=== PATIENT | female | born 1930 | race Caucasian/White ===

== ENCOUNTER → 2016-08-22 | Outpatient (CLI) | payer OTHER, BC ==
[~2016-08-22] MED LIST: ADVIL100 M2 PO; ASPIRIN325 PO; ASPIRIN81 M2 PO; AUGMENTIN 875-1 EACH PO; BACLOFEN 10 MG10 MG PO; CIPRO250 M1; COLACE100 MG PO; FLAGYL 250 MG250 MG PO; FLONASE 0.05%50 MCG NASAL; GABAPENTIN; HYDROCODON-ACE1 EA10 PO; HYDROCODONE-AP1 EAC6 PO; KEFLEX250 MG; KEFLEX250 MG PO; MOBIC15 MG PO; MOBIC7.5 M1 PO; MULTIVITAMINS1 EAC7 PO; NEURONTIN 300300 M1 PO; NEURONTIN 400400 M1 PO; NEXIUM40 MG PO; TRAMADOL 50 MG50 MG PO; VITAMIN D1000 UNI1 PO; XARELTO20 MG PO
== END ==
LOC: RAD 01:46
DX: Z12.31 Encounter for screening mammogram for malignant neoplasm of breast (principal)

== ENCOUNTER → 2016-12-25 | Outpatient (CLI) | payer OTHER, BC ==
[~2016-12-25] MED LIST changes: +ACETAMINOPHEN325 M1 PO; +VITAMIN B-12500 MCG PO
== END ==
LOC: CAT 10:43
DX: M47.896 Other spondylosis, lumbar region (principal); M48.061 Spinal stenosis, lumbar region without neurogenic claudication

== ENCOUNTER 2017-01-17 10:43 | Inpatient (IN) | payer OTHER, BC ==
[~2017-01-17] VITALS: Ht 165.1 cm; Wt 117.9 kg
--- NOTE | ~2017-01-17 | EKG ---
[place] [address] [address] [facility] [place] [address] ELECTROCARDIOGRAM REPORT Name: JUSTICE WANG Room #: 405-P ADM IN M.R.#: [id number] Admission: 01/17/17 Attend Phys: Migdalia Mays Discharge: Date of : 32 Report #: [id number] THIS REPORT FOR: //name// [facility] ED Test Date: 2017-01-17 Test Time: 12:50:24 Pat Name: JUSTICE WANG Department: Room: 405 Gender: F School Director: rené : 1930 Requested By: Kristie Metz Order Number: [id number] MD: Miguel Gayle Measurements Intervals Rosamond Rate: 60 P: 0 NC: 38 QRS: 264 QRSD: 136 T: 83 QT: 435 QTc: 435 Interpretive Statements Atrial fibrillation Ventricular-paced rhythm No further analysis attempted due to paced rhythm Compared to ECG 11/20/2015 08:46:39 No significant changes Electronically Signed On 01-17-2017 16:06:37 MEDIA PRODUCER by Miguel Gayle [email or web address] <ELECTRONICALLY SIGNED> By: Miguel Gayle MD 01/17/17 1606 1250 1250 Miguel Gayle MD /LEONARDO
[2017-01-17 10:47] VITALS: BP 160/107
[2017-01-17] MEDS ORDERED: CENTRUM SILVER1 EAC4 PO (11:00)
[2017-01-17] MEDS ORDERED: NEURONTIN300 MG PO (11:00)
[2017-01-17 12:26] LABS: HEMATOCRIT 51.2 % (37.0-47.0); HEMOGLOBIN 17.3 gm/dL (12.0-15.0); MANUAL DIFF YES; MCH 32.2 pg (26.0-34.0); MCHC 33.7 g/dL (28.0-37.0); MCV 95.6 fL (80.0-100.0); PLATELET COUNT 180 thou/uL (150-400); RBC 5.36 mil/uL (4.20-5.00); WBC 15.4 thou/uL (4.0-11.0)
[2017-01-17 12:32] LABS: CALCIUM 9.8 mg/dL (8.5-10.1); CREATININE 0.7 mg/dL (0.6-1.0); POTASSIUM 4.6 mmol/L (3.5-5.1)
[2017-01-17 12:52] LABS: ABSOLUTE NEUTROPHILS 12.3 thou/uL (1.4-8.2); TOTAL CELL COUNT 100
[2017-01-17 13:55] LABS: URINE BILIRUBIN NEGATIVE (Negative); URINE BLOOD NEGATIVE (Negative); URINE COLOR YELLOW; URINE GLUCOSE-RANDOM* NEGATIVE (Negative); URINE KETONES TRACE (Negative); URINE NITRITE NEGATIVE (Negative); URINE PROTEIN (DIPSTICK) NEGATIVE (Negative); URINE SPECIFIC GRAVITY 1.025 (1.005-1.035); URINE UROBILINOGEN 0.2 E.U./dl (0.2-1.0)
[2017-01-17 16:07] VITALS: BP 122/59
[2017-01-17 19:40] VITALS: BP 121/54
[2017-01-18 05:25] VITALS: BP 128/71
[2017-01-18 08:11] VITALS: BP 134/76
[2017-01-18] MEDS ORDERED: HYDROCODON-ACE1 EAC7 PO (09:49)
[2017-01-18] MEDS ORDERED: CYCLOBENZAPRINE5 MG PO (09:49)
[2017-01-18 10:47] VITALS: BP 134/76
== END 2017-01-18 11:41 | disposition home or self-care (01) | DRG 552 ==
LOC: ER 10:43 → 4N 12:10 → EROBS 12:10 → 4N 14:00 → EROBS 14:00 → 4N 14:21
PROVIDERS: Emergency Medicine
DX: S32.029A Unspecified fracture of second lumbar vertebra, initial encounter for closed fracture (principal); Z68.41 Body mass index [BMI] 40.0-44.9, adult; D72.829 Elevated white blood cell count, unspecified; I48.91 Unspecified atrial fibrillation; E66.9 Obesity, unspecified; M43.16 Spondylolisthesis, lumbar region; W18.39XA Other fall on same level, initial encounter; Y93.89 Activity, other specified; Y92.89 Other specified places as the place of occurrence of the external cause; Z88.2 Allergy status to sulfonamides; Y99.8 Other external cause status
CPT/HCPCS: 10790

== ENCOUNTER → 2017-01-27 | Outpatient (CLI) | payer OTHER, BC ==
[~2017-01-27] VITALS: Ht 165.1 cm; Wt 117.9 kg
[~2017-01-27] MED LIST changes: +CENTRUM SILVER1 EAC4 PO; +CYCLOBENZAPRINE5 MG PO; +HYDROCODON-ACE1 EAC7 PO; +NEURONTIN300 MG PO
--- NOTE | ~2017-01-27 | HPC ---
[facility] [address] [address] PAIN MANAGEMENT CONSULTATION Name: JUSTICE WANG [facility] [id number] Admission: 01/27/17 Attend Phys: Payam Lamas DO Discharge: Date of : 32 Report #: [id number] THIS REPORT FOR: //name// CC: Payam Morales DO DATE OF SERVICE: 01/27/2017 REFERRING PHYSICIAN: Ninfa Morales DO. CHIEF COMPLAINT: Low back pain, right lower extremity pain and paresthesias. HISTORY OF PRESENT ILLNESS: As you know, the patient is a very pleasant 86-year-old female who returns today in followup visit to undergo next in the series of epidural injections under fluoroscopic guidance. The patient is placing her pain score anywhere from 2-3/10, states her pain is shooting, burning, aching and weakness in sensation, exacerbated with lying on her side, lifting her leg, sitting, and driving in her car, gabapentin, Tylenol, chiropractic manipulation and epidural injections have improved pain. She reports a 90% improvement in overall pain with previous epidural injection, returning today in followup visit to undergo the next in the series in hopes of building on success of previous intervention. The patient has had no new injury, no new traumas or changes in her medical history since our last visit. ALLERGIES: SULFA. CURRENT MEDICATIONS: Cholecalciferol, gabapentin, acetaminophen, cyanocobalamin, and Xarelto (held for 5 days). SOCIAL HISTORY: The patient denies tobacco, alcohol, IV or illicit drug use. IMAGING: No new imaging available. PHYSICAL EXAMINATION: VITAL SIGNS: Blood pressure 110/51, pulse is 63, respiratory rate 20 and unlabored, the patient is 100% on room air, height 5 feet 7 inches tall, weight 260 pounds, BMI calculated 43.3. GENERAL: Well-developed, well-nourished, well-hydrated, class 3 morbidly obese 86-year-old female, appearing her stated age, placing current pain score at 2-3/10. HEENT: Normocephalic, atraumatic. Pupils are equal, round, reactive to light. Extraocular muscles are intact. Sclerae nonicteric without injection. EXTREMITIES: Show no clubbing, no cyanosis, and no edema. MUSCULOSKELETAL: Seated straight leg raising negative. Supine straight leg raising positive. Marisabel's test negative. Modified Gaenslen's positive for [facility] [address] [place] [address] PAIN MANAGEMENT CONSULTATION Name: JUSTICE WANG [id number] Admission: 01/27/17 Attend Phys: Payam Lamas DO Discharge: Date of : 32 Report #: [id number] axial low back pain. Gait is antalgic favoring right lower extremity over left. ASSESSMENT: 1. Symptomatic lumbar radiculopathy. 2. Lumbosacral spondylosis with radiculopathy. 3. Spinal stenosis of the lumbar spine. 4. Facet arthropathy of the lumbar spine. 5. Chronic intractable pain. PLAN: 1. The patient returns today in followup visit indicating a 90% improvement in overall pain with the epidural injection provided at last visit. She returns today in followup visit to build on success of previous intervention. The patient was advised the risks and benefits of that procedure. These risks include, but not necessarily limited to bleeding, bruising, infection, worsening of pain, no relief of pain, also risk of temporary or permanent muscle weakness, temporary or permanent nerve damage, possible paralysis and . The patient states understood and wished to proceed. 2. No medication changes were made at today's visit. The patient will continue current medical therapy as previously prescribed. 3. We will see the patient back in followup visit on an as needed basis for the third and final in the series of epidural injections. PROCEDURE NOTE DESCRIPTION OF PROCEDURE: L5-S1 paramedian epidural steroid injection under fluoroscopic guidance. This is the second procedure of the first series that the patient is undergoing. After obtaining written consent, the patient was taken back to the fluoroscopy suite, placed in a prone position with pillow under the abdomen to decrease lumbar lordosis. The skin overlying the lumbosacral area was then prepped and draped in aseptic fashion. The L5-S1 vertebral interspace was then identified by AP fluoroscopy. The skin and subcutaneous tissue overlying the target site of injection was anesthetized with 3 mL 1% lidocaine. A 20-gauge 4-1/2-inch Tuohy needle was then advanced under fluoroscopic guidance towards the epidural space using a paramedian approach. The epidural space was identified using loss of resistance to air technique. After negative aspiration for heme or cerebrospinal fluid, a total of 1 mL of Omnipaque was injected. A lumbar epidurogram was confirmed using both AP and lateral fluoroscopy. After negative aspiration for heme or cerebrospinal fluid, 5 mL of a solution containing 2 mL 40 mg per mL, 80 mg total triamcinolone, 3 mL lidocaine 1% was injected in increments. Contrast spread was noted posterior epidural space. The needle was then retracted approximately half way and needle tract flushed [address] [address] PAIN MANAGEMENT CONSULTATION Name: JUSTICE WANG Room #: REG CLI Radha#: [id number] Admission: 01/27/17 Attend Phys: Payam Lamas DO Discharge: Date of : 32 Report #: [id number] with 1 mL of 1% lidocaine. Needle was then removed. There were no apparent sensory or motor deficits in the lower extremity following the procedure. A sterile bandage was placed over the injection site. The heart rate, pulse, oximetry and blood pressure were continuously monitored after the procedure. There were no apparent complications. The patient tolerated the procedure well and was carefully escorted to the recovery room in stable condition. There were no apparent complications. After meeting discharge criteria, the patient was then discharged home. By: 1130 1451 Payam Lamas DO /nt
[2017-01-27 10:48] VITALS: BP 110/51
== END | disposition home or self-care (01) ==
LOC: PAIN 01-20 09:49
DX: M47.27 Other spondylosis with radiculopathy, lumbosacral region (principal); M48.061 Spinal stenosis, lumbar region without neurogenic claudication; M12.88 Other specific arthropathies, not elsewhere classified, other specified site; G89.29 Other chronic pain; Z88.2 Allergy status to sulfonamides; Z98.890 Other specified postprocedural states; Z79.891 Long term (current) use of opiate analgesic; Z79.899 Other long term (current) drug therapy

== ENCOUNTER → 2017-03-09 | Outpatient (CLI) | payer OTHER, BC ==
[~2017-03-09] VITALS: Ht 165.1 cm; Wt 115.7 kg
[~2017-03-09] MED LIST changes: +CLARITIN10 MG PO
--- NOTE | ~2017-03-09 | S ---
[facility] [place] [address] [place] [address] SURGICAL PATH RPT PROCEDURE Name: JUSTICE WANG Room #: REG [facility].#: [id number] Admission: 03/09/17 Date of : 32 Discharge: Report #: [id number] Path Case #: [id number] PATHOLOGY REPORT COLLECTION DATE: 03/09/2017 RECEIVED DATE: 03/09/2017 SUBMITTING PHYS: Dr. Fredo Lugo OTHER PHYS: Dr. Ninfa Morales SPECIMEN(S) RECEIVED: A.Polyp biopsy x4 B.Polyp cecum * * * * * * * * * * * * FINAL DIAGNOSIS: A. Polyp x4, hepatic flexure, endoscopic biopsy: - Multiple fragments showing tubular adenoma without high-grade dysplasia. - One fragment showing hyperplastic polyp without dysplasia. B. Polyp, cecum, endoscopic biopsy: - Tubular adenoma. - Negative for high-grade dysplasia. (IUV:marzena; 03/10/2017) PATHOLOGIST: Kadi Gonzalez M.D. REPORT ELECTRONICALLY SIGNED BY: Kadi Gonzalez M.D. DATE/TIME: 03/10/2017 16:31 * * * * * * * * * * * * GROSS PATHOLOGY: A. Received in formalin labeled "Justice Wang, polyp BX hepatic flexure x4," are multiple (more than 5) segments of cox soft tissue measuring 1.3 x 0.7 x 0.2 cm in aggregate dimensions. The specimen is submitted entirely in cassette A1. B. Received in formalin labeled "Justice Wang, polyp-cecum," is a segment of cox soft tissue measuring 0.9 x 0.5 x 0.2 cm in maximum dimension. The specimen is submitted entirely in cassette B1. (SDY; 03/09/2017) CLINICAL HISTORY: History colon polyps, change in bowel habits Colon polyps, diverticulosis, hemorrhoids INITIAL CPT CODE(S): A; [address] [facility] [place] [address] SURGICAL PATH RPT PROCEDURE Name: JUSTICE WANG Room #: REG [facility].#: [id number] Admission: 03/09/17 Date of : 32 Discharge: Report #: [id number] Path Case #: [id number]; [id number] Professional services performed by [facility] at [address] , [place] [address] Technical services performed by [facility] at [address] [place] [address], [facility] [address], [place] [address]. [facility] [address] [place] [address] PHONE: [phone] DIRECTOR: Blu Wills M.D. * * * END OF REPORT * * *
--- NOTE | ~2017-03-09 | P ---
[facility] [place] [address] [place] [address] PROCEDURE REPORT Name: JUSTICE WANG Room #: REG [facility].#: [id number] Admission: 03/09/17 Attend Phys: Fredo Lugo MD Discharge: Date of : 32 Report #: [id number] THIS REPORT FOR: //name// CC: Fredo Morales DO BRIEF HISTORY: The patient is an 86-year-old woman with a history of colon adenoma removed in May 2007, who was recently seen for change in bowel habits with worsening constipation to the point she had to manually disimpact her rectum. PREOPERATIVE DIAGNOSES: Change in bowel habits and history of colon polyps. POSTOPERATIVE DIAGNOSES: 1. Multiple colon polyps. 2. Moderate sigmoid diverticulosis coli. 3. Internal hemorrhoids. MEDICATIONS: Deep sedation with propofol per anesthesia. SPECIMENS: 1. Diminutive hepatic flexure polyps times 4. 2. Sessile polyp, cecum. ESTIMATED BLOOD LOSS: 3 mL. PROCEDURE: Colonoscopy to cecum and terminal ileum with snare polypectomy and biopsy. FINDINGS: Prior to propofol sedation, the procedure of colonoscopy discussed with the patient as well as potential risks, benefits, and complications. She indicates she understands and desires to proceed. With the patient in left lateral decubitus position, digital examination was completed, which revealed no abnormalities. Subsequently, the [employer] video colonoscope was introduced in the rectum, advanced under direct vision to the cecum. Done with minimal difficulty. The cecum was identified by the ileocecal valve and the appendiceal orifice. I was able to visualize the distal segment of terminal ileum, which was inspected and noted to be unremarkable. At that point, scope was withdrawn and careful circumferential views were obtained. Upon slow withdrawal of the scope, the prep was noted to be good. The mucosa was within normal limits, normal vascular pattern, and normal light reflex. As we withdrew the scope, a sessile 5-mm polyp was seen in the cecum, removed by cold snare polypectomy. Scope was further withdrawn and at the hepatic flexure, a total of 4 diminutive polyps were seen and removed by biopsy. No additional polypoid lesions were seen on this examination. As we reached the [facility] [address] [place] [address] PROCEDURE REPORT Name: JUSTICE WANG Room #: REG [facility].#: [id number] Admission: 03/09/17 Attend Phys: Fredo Lugo MD Discharge: Date of : 32 Report #: [id number] colon, there was noted to be moderately severe diverticular disease without endoscopic evidence of diverticulitis. The scope was withdrawn in the rectum. Upon retroflexion, no abnormalities were seen other than hemorrhoids noted upon retroflexion of the scope. Scope was withdrawn. The patient tolerated the procedure well. CONDITION OF THE PATIENT UPON DISCHARGE: Following procedure, the patient drowsy, arousable and conversant. She will be discharged to home when fully ambulatory. INSTRUCTIONS TO THE PATIENT AND FAMILY AT THE TIME OF DISCHARGE: A total of 5 polyps were identified today. They all had the appearance of small adenomas. Typically at this point, I would suggest followup colon exam in 3 years. However, benefit of surveillance colonoscopy at age 89 may be limited. However, if her overall health status is good and longevity appears to be at least 7 years or so, a surveillance exam in 3 years may be reasonable. We will follow up on the path and make further recommendations. As far as her altered bowel habits and constipation, suggest MiraLax on a daily basis. She should return to the office for followup if her symptoms do not improve. <ELECTRONICALLY SIGNED> By: Fredo Lugo MD 03/09/17 1631 0953 1436 Fredo Lugo MD /nt
== END | disposition home or self-care (01) ==
LOC: GI 08:17
DX: D12.0 Benign neoplasm of cecum (principal); D12.3 Benign neoplasm of transverse colon; K57.30 Diverticulosis of large intestine without perforation or abscess without bleeding; K64.8 Other hemorrhoids; Z86.010 Personal history of colon polyps; G47.33 Obstructive sleep apnea (adult) (pediatric); Z95.0 Presence of cardiac pacemaker; Z90.49 Acquired absence of other specified parts of digestive tract; Z79.899 Other long term (current) drug therapy; Z88.2 Allergy status to sulfonamides
CPT/HCPCS: 62110; 62900

== ENCOUNTER 2017-07-09 11:35 | Emergency (ER) | payer OTHER, BC ==
[~2017-07-09] VITALS: Ht 167.6 cm; Wt 115.7 kg
--- NOTE | ~2017-07-09 | O ---
[facility] [address] [place] [address] OPERATIVE REPORT Name: JUSTICE WANG Room #: REG M..#: [id number] Admission: 07/09/17 Attend Phys: Discharge: Date of : 32 Report #: [id number] THIS REPORT FOR: //name// CC: Rigo CHONG unknown DATE OF SERVICE: 07/09/2017 PREOPERATIVE DIAGNOSIS: Left anterior inferior shoulder dislocation. POSTOPERATIVE DIAGNOSIS: Left anterior inferior shoulder dislocation. PROCEDURE PERFORMED: Closed reduction of glenohumeral joint dislocation. SURGEON: Kandace Antoine MD ANESTHESIA: Sedation provided by Dr. Anahi Tolbert from anesthesia. COMPLICATIONS: None. CONDITION: Stable. DISPOSITION: The procedure was performed in the Emergency Department. INDICATIONS: The patient is an 86-year-old female with the above mentioned diagnosis. She elects for closed reduction. DESCRIPTION OF PROCEDURE: The risks, benefits, alternatives, complications were discussed including, but not limited to inability to reduce the dislocation, fracture and injury to neurovascular structures. Informed consent was obtained. The correct extremity was identified by myself. A final timeout was taken to verify correct patient, operative procedure and operative site, all concurred. After adequate sedation was achieved, a gentle closed reduction maneuver was performed. There was an audible clunk and the shoulder motion was assessed. It was stable in all planes of motion. AP and axillary lateral view were reviewed and interpreted by myself and showed a concentrically reduced glenohumeral joint. She was placed into a shoulder immobilizer. She was neurovascularly intact post reduction. She had 2+ radial and ulnar pulses, abduction and adduction, flexion, extension was intact. She tolerated the procedure well. By: 1910 21 Kandace Antoine MD /nt
--- NOTE | ~2017-07-09 | HC ---
[facility] [address] [place] [address] CONSULTATION Name: JUSTICE WANG Room #: DEP [facility]#: [id number] Admission: 07/09/17 Attend Phys: Discharge: 07/09/17 Date of : 32 Report #: [id number] THIS REPORT FOR: //name// CC: Rigo CHONG unknown DATE OF SERVICE: 07/09/2017 REASON FOR CONSULTATION: Left shoulder dislocation. HISTORY OF PRESENT ILLNESS: The patient is an 86-year-old female who fell today while hanging a shelf. She reported slipping and falling. She denied loss of consciousness. Reported left shoulder pain and deformity. She denies numbness or tingling in her left upper extremity. REVIEW OF SYSTEMS: NEUROLOGIC: Denies numbness or tingling in her left upper extremity. MUSCULOSKELETAL: See HPI. PAST MEDICAL HISTORY: Significant for atrial fibrillation and sleep apnea. PAST SURGICAL HISTORY: Cholecystectomy and a pacemaker placement. MEDICATIONS: Xarelto, gabapentin, cyanocobalamin, cholecalciferol and acetaminophen. ALLERGIES: SULFA. SOCIAL HISTORY: She lives by herself. She is right hand dominant. She occasionally uses a cane. Denies smoking or drinking alcohol. PHYSICAL EXAMINATION: GENERAL: The patient is alert and oriented. She is in a mild amount of distress. VITAL SIGNS: Most recent vital signs show heart rate is 60, respiratory rate 18, blood pressure 135/56, and pulse oximetry is 96% on room air. EXTREMITIES: Examination of her left upper extremity shows an adducted and externally rotated shoulder. Sensation is intact to light touch throughout including Sergeant's patch. It does appear that she fires her deltoid. She has full finger and wrist extension. Full finger flexion, abduction and adduction is intact. There are some small abrasions to her left upper extremity. There is no tenderness at the elbow, forearm, wrist or hand. There is significant tenderness at the shoulder. RADIOGRAPHS: AP, scapular Y and axillary lateral view show predominantly inferior with an anterior component shoulder dislocation without evidence of [address] [address] CONSULTATION Name: JUSTICE WANG Room #: [facility].#: [id number] Admission: 07/09/17 Attend Phys: Discharge: 07/09/17 Date of : 32 Report #: [id number] fracture and these were reviewed and interpreted by myself as well as the report. LABORATORY DATA: White blood cell count 12, hemoglobin 15.5, hematocrit 45, platelet count 166. Chemistry is grossly normal. These were done on 07/09/2017. IMPRESSION AND PLAN: Left anterior inferior glenohumeral joint dislocation. I discussed the diagnosis as well as treatment options with the patient and I recommend closed reduction under anesthesia. We discussed the risks, benefits, alternatives, complications including, but not limited to inability to resolve the dislocation, requiring surgery, damage to blood vessels or nerves and fracture. Informed consent was obtained. Questions were encouraged and answered to the best of my ability. Please see a separate procedure report. By: 1723 2120 Kandace Antoine MD /nt
[~2017-07-09 11:35] MED LIST changes: -CLARITIN10 MG PO
[2017-07-09 14:32] LABS: ABSOLUTE NEUTROPHILS 10.4 thou/uL (1.4-8.2); BASOPHILS 0.4 % (0.0-2.0); EOSINOPHILS 0.3 % (0.0-3.0); HEMATOCRIT 45.8 % (37.0-47.0); HEMOGLOBIN 15.5 gm/dL (12.0-15.0); MCH 32.1 pg (26.0-34.0); MCHC 33.8 g/dL (28.0-37.0); MCV 95.1 fL (80.0-100.0); MONOCYTES 3.4 % (1.0-8.0); PLATELET COUNT 166 thou/uL (150-400); POLYS 86.9 % (36.0-66.0); RBC 4.81 mil/uL (4.20-5.00); RDW 13.3 % (10.5-14.5)
[2017-07-09 14:40] LABS: CALCIUM 9.8 mg/dL (8.5-10.1); CREATININE 0.8 mg/dL (0.6-1.0); POTASSIUM 4.1 mmol/L (3.5-5.1)
[2017-07-09] MEDS ORDERED: COLACE100 MG PO (15:28)
[2017-07-09] MEDS ORDERED: CLARITIN10 MG PO (15:28)
[2017-07-09 21:17] VITALS: BP 127/66
== END 2017-07-09 21:17 | disposition home or self-care (01) ==
LOC: ER 11:35
PROVIDERS: Emergency Medicine
DX: S43.005A Unspecified dislocation of left shoulder joint, initial encounter (principal); S41.112A Laceration without foreign body of left upper arm, initial encounter; I48.91 Unspecified atrial fibrillation; Z95.0 Presence of cardiac pacemaker; Z90.49 Acquired absence of other specified parts of digestive tract; G47.30 Sleep apnea, unspecified; Z88.2 Allergy status to sulfonamides; W19.XXXA Unspecified fall, initial encounter; Y93.89 Activity, other specified; Y92.89 Other specified places as the place of occurrence of the external cause; Y99.8 Other external cause status
CPT/HCPCS: 62110; 62900

== ENCOUNTER → 2017-08-17 | Outpatient (CLI) | payer OTHER, BC ==
[~2017-08-17] MED LIST changes: +CLARITIN10 MG PO
== END | disposition home or self-care (01) ==
LOC: RAD 09:53
DX: M19.012 Primary osteoarthritis, left shoulder (principal); M25.512 Pain in left shoulder; Z98.890 Other specified postprocedural states; Z88.2 Allergy status to sulfonamides; Z79.899 Other long term (current) drug therapy

== ENCOUNTER → 2017-08-26 | Outpatient (CLI) | payer OTHER, BC | LOC: RAD 08-07 13:25 | DX: Z12.31 Encounter for screening mammogram for malignant neoplasm of breast (principal) ==

== ENCOUNTER → 2018-05-13 | Outpatient (CLI) | payer OTHER, BC ==
--- NOTE | 2018-05-13 15:54 | 2DMMODE ---
[facility] [address] [place] [address] 2 D/M-MODE ECHOCARDIOGRAM Name: JUSTICE WANG Room #: REG [facility] [id number] ������������� Admission: 05/13/18 ������������� Attend Phys: Miguel Gayle Discharge: ��� ������������� ��� Date of : 34 Date of Service: 05/13/18 1554 �� Report #: [id number] �������� ��������������������������������������������[id number] THIS REPORT FOR: //name// APPROVED REPORT Study performed: 05/13/2018 14:32:35 EXAM: Comprehensive 2D, Doppler, and color-flow Echocardiogram Patient Location: Out-Patient Room #: Echo lab 2 Status: routine BSA: 2.22 HR: 61 bpm BP: 126/78 mmHg Other Information Study Quality: Fair Indications Atrial Fibrillation Pacemaker 2D Dimensions IVSd: 11.25 (7-11mm) LVOT Diam: 21.03 (18-24mm) LVDd: 52.20 mm PWd: 11.25 (7-11mm) Ascending Ao: 33.72 (22-36mm) LVDs: 35.61 (25-40mm) Aortic Root: 31.81 mm IVC: 24.00 mm Volumes Left Atrial Volume (Systole) Single Plane 4CH: 114.24 mL Single Plane 2CH: 56.52 mL LA ESV Index: 40.00 mL/m2 Aortic Valve AoV Peak Omid.: 1.56 m/s AO Peak Gr.: 9.77 mmHg LVOT Max P.05 mmHg LVOT Max V: 1.01 m/s MADDY Vmax: 2.23 cm2 Pulmonary Valve PV Peak Omid.: 0.86 m/s PV Peak Gr.: 2.98 mmHg Tricuspid Valve TR Peak Omid.: 2.35 m/s [facility] [address] [place] [address] 2 D/M-MODE ECHOCARDIOGRAM Name: JUSTICE WANG Room #: REG [facility].#: [id number] ������������� Admission: 05/13/18 ������������� Attend Phys: Miguel Gayle Discharge: ��� ������������� ��� Date of : 34 Date of Service: 05/13/18 1554 �� Report #: [id number] �������� ��������������������������������������������[id number] TR Peak Gr.: 22.13 mmHg PA Pressure: 32.00 mmHg Left Ventricle The left ventricle is normal size. There is normal left ventricular wall thickness. The left ventricular systolic function is normal. The left ventricular ejection fraction is within the normal range. LVEF is 55-60%. This study is not technically sufficient to allow evaluation of the LV diastolic function. Right Ventricle The right ventricle is normal size. The right ventricular systolic function is normal. Pacemaker lead is present in the right ventricle. Atria Left atrium is dilated. Right atrium is dilated. Pacemaker lead is present in the right atrium. Aortic Valve The aortic valve is normal in structure. No aortic regurgitation is present. There is no aortic valvular stenosis. Mitral Valve The mitral valve is normal in structure. Mild mitral regurgitation. No evidence of mitral valve stenosis. Tricuspid Valve The tricuspid valve is normal in structure. There is moderate tricuspid regurgitation. Estimated PAP 32 mmHg. There is mild pulmonary hypertension. Pulmonic Valve The pulmonary valve is normal in structure. Trace pulmonic regurgitation. Great Vessels The aortic root is normal in size. IVC is dilated and collapses >50% with inspiration. Pericardium There is no pericardial effusion. <Conclusion> The left ventricle is normal size. There is normal left ventricular wall thickness. The left ventricular systolic function is normal. [facility] [address] [place] [address] 2 D/M-MODE ECHOCARDIOGRAM Name: JUSTICE WANG Room #: REG CL [facility]#: [id number] ������������� Admission: 05/13/18 ������������� Attend Phys: Miguel Gayle Discharge: ��� ������������� ��� Date of : 34 Date of Service: 05/13/18 1554 �� Report #: [id number] �������� ��������������������������������������������[id number] The right ventricle is normal size. Pacemaker lead is present in the right ventricle. Left atrium is dilated. Right atrium is dilated. Pacemaker lead is present in the right atrium. There is no aortic valvular stenosis. Mild mitral regurgitation. There is moderate tricuspid regurgitation. Estimated PAP 32 mmHg. ��������������������������������������������� <ELECTRONICALLY SIGNED> ���������������������������������������� By: Reno Fox MD ��������������������������������������������� 05/13/18 1554 1554 1554 Reno Fox MD /INF
== END ==
LOC: CV 14:20
DX: I08.1 Rheumatic disorders of both mitral and tricuspid valves (principal); I45.9 Conduction disorder, unspecified; I48.91 Unspecified atrial fibrillation; Z95.0 Presence of cardiac pacemaker

== ENCOUNTER → 2018-09-01 | Outpatient (CLI) | payer OTHER, BC | LOC: RAD 01:17 | DX: Z12.31 Encounter for screening mammogram for malignant neoplasm of breast (principal) ==

== ENCOUNTER 2018-11-08 11:39 | Emergency (ER) | payer OTHER, BC ==
[~2018-11-08] VITALS: Ht 167.6 cm; Wt 110.2 kg
[2018-11-08 14:49] VITALS: BP 112/61
== END 2018-11-08 14:49 | disposition home or self-care (01) ==
LOC: ER 11:39
DX: S50.01XA Contusion of right elbow, initial encounter (principal); S30.0XXA Contusion of lower back and pelvis, initial encounter; S00.03XA Contusion of scalp, initial encounter; S80.812A Abrasion, left lower leg, initial encounter; G47.30 Sleep apnea, unspecified; I48.91 Unspecified atrial fibrillation; Z88.2 Allergy status to sulfonamides; Z90.49 Acquired absence of other specified parts of digestive tract; Z95.0 Presence of cardiac pacemaker; W18.39XA Other fall on same level, initial encounter; Y92.89 Other specified places as the place of occurrence of the external cause; Y93.89 Activity, other specified; Y99.8 Other external cause status

== ENCOUNTER → 2019-04-05 | Outpatient (CLI) | payer OTHER, BC | LOC: CAT 09:26 | DX: J34.89 Other specified disorders of nose and nasal sinuses (principal); J32.9 Chronic sinusitis, unspecified ==

== ENCOUNTER 2019-07-17 02:34 | Inpatient (IN) | payer OTHER, BC ==
[~2019-07-17] VITALS: Ht 167.6 cm; Wt 108.9 kg
[2019-07-17 02:38] VITALS: BP 131/50
[2019-07-17 04:57] LABS: HEMATOCRIT 45.3 % (37.0-47.0); HEMOGLOBIN 15.6 gm/dL (12.0-15.0); MCH 32.8 pg (26.0-34.0); MCHC 34.4 g/dL (28.0-37.0); MCV 95.3 fL (80.0-100.0); RBC 4.76 mil/uL (4.20-5.00); RDW 13.2 % (10.5-14.5); WBC 10.7 thou/uL (4.0-11.0)
[2019-07-17 05:12] LABS: CALCIUM 9.8 mg/dL (8.5-10.1); CREATININE 0.9 mg/dL (0.6-1.0); POTASSIUM 4.5 mmol/L (3.5-5.1)
[2019-07-17 05:27] LABS: APTT 44.3 Seconds (24.5-32.8); INR 1.2; PROTIME 11.9 Seconds (9.3-11.4)
[2019-07-17 05:45] VITALS: BP 131/50
[2019-07-17 06:01] VITALS: BP 131/50
--- NOTE | 2019-07-17 14:59 | NUR ---
PT CARE ASSUMED AT 0700. A&OX4. PT ON BEDREST PER MD ORDERS DUE TO T12 FRACTURE. PT IS TO STAY ON BEDREST UNTIL BACKBRACE IS ON AFTER HEELROOM COMES TO HER AND MEASURES HER. PAIN IS BEING MEASURED WITH PAIN MEDICATION. PT CAN HAVE THE HOB ELEVATED TO 20%. EXTERNAL JARQUIN IN PLACE. CONSULTS CALLED. PT WEARS HEARING AIDS AND DENTURES. PACEMAKER. XRAYS COMPLEETED AWAITING RESULTS. WEARS CPAP AT HOME. FALL PROTOCOL IN PLACE. ADMISSION COMPLEETED. CALL LIGHT IN REACH.
[2019-07-17 15:00] VITALS: BP 106/56
[2019-07-17 19:11] VITALS: BP 120/46
--- NOTE | 2019-07-18 03:29 | NUR ---
ASSUMED PT CARE AT 1900. PT RESTING IN BED. RT BROUGHT CPAP AND HOOKED HER UP. NO C/O PAIN OVERNIGHT - SAYS IT IS ONLY WHEN SHE MOVES. ABRASIONS ON ELBOWS GIVEN A FRESH BANDAID. FEMALE EXTERNAL CATHETER IN PLACE. NO COMPLAINTS AT THIS TIME. WILL CONTINUE TO MONITOR.
[2019-07-18 04:53] VITALS: BP 118/66
[2019-07-18 07:45] VITALS: BP 109/62
--- NOTE | 2019-07-18 16:56 | NUR ---
ASSUMED CARE OF THE PT AT 0700. PT IS ON STRUCT BEDREST AND CANNOT ELEVATE HOB >20 DEGREES. BACK BRACE DELIVERED. L FOREARM DRY AND INTACT. EXTERNAL CATHETER IN PLACE, PT IS INCONTINENT. PT USES CPAP AT NITE WITH PULSE OX. PT HAS PACEMAKER. FALL PRECAUTIONS IN PLACE, BED IN THE LOWEST POSITION AND BED/CHAIR ALARM ON, CALL LIGHT IS WITHIN REACH. WILL CONTINUE TO MONITOR THE PT.
[2019-07-18 17:24] VITALS: BP 124/59
[2019-07-18 19:11] VITALS: BP 129/52
--- NOTE | 2019-07-19 02:08 | NUR ---
ASSESSED AT START OF SHIFT 1899, PT RESTING IN BED HOB 20 DEGREES ON A STRICT BED REST. ORTHO BACK BRACE AT BEDSIDE PHYSICAL THERAPY TO EVALUATE TOMORROW. C/O PAIN 09/18 MANAGED WITH IV MORPHINE. EXT FEMALE CATH IN PLACE AND PT WEARS CPAP AT NIGHT. PT GRAND DTR RICHARD CALLED WORRIED THAT NO ONE HAS UPDATED HER ON CARE AND STATED THAT HASN'T SEE HER. UPDATED HER ON CARE AND INFORMED ABOUT PROGRESS AND CARE GIVEN DURING THE DAY. FALL PREC IN PLACE AND CALL LIGHT IN REACH PT SLEPT THE REST OF THE NIGHT WILL CONT WITH POC TILL EOS.
[2019-07-19 03:30] VITALS: BP 155/59
[2019-07-19 08:25] VITALS: BP 146/74
[2019-07-19] MEDS ORDERED: LEVO-T25 MCG PO (09:53)
--- NOTE | 2019-07-19 15:41 | NUR ---
ASSESSMENT: CM REVIEWED CHART AND ATTEMPTED TO CALL PT AT BEDSIDE BUT NO ANSWER. CM REACHED OUT TO PATIENTS DAUGHTER/DPOA DEBORAH WHO STATED THAT PATIENT LIVES AT HOME ALONE. SHE REPORTS THAT HER NIECE RICHARD IS FLYING IN FROM [facility] TOMORROW TO HELP ASSIST PATIENT AT DISCHARGE IF NEEDED. SHE REPORTS THAT PATIENTS HAS TWO STEPS TO enter the home NO STEPS TO GET TO HER BEDROOM. PT NORMALLY AMBULATES INDEPENDENTLY BUT DOES HAVE A CANE SHE USES WHEN OUTSIDE OF THE HOME. PT HAS A GRAB BAR IN THE SHOWER. PT HAS NOT BEEN TO SNF. CM DISCUSSED ROLE. PT HAS HER BRACE AND WORKING WITH PT/OT. CONSULT WAS PLACED FOR [facility] AND CM IS AWAITING INPUT FROM [facility] T[facility]. SHE STATES SHE WILL UPDATE CM INFORMATION IS AVAILABLE. DAUGHTER STATED HER SISTER IS NERVOUS ABOUT PT CONSIDERING A SNF DUE TO THE COVID 19 VIRUS. CM DISCUSSED HH OPTIONS WELL IF THEY ARE REFUSING SNF. CM WILL AWAIT INPUT FROM [facility] AND CONTINUE TO FOLLOW TO ASSIST NEEDED.
--- NOTE | 2019-07-19 16:43 | NUR ---
PT CARE ASSUMED AT 0700. A&Ox4. PT UP IN THE RECLINER NOW THAT SHE HAS HER BRACE. WHEN SHE IS NOT WEARING IT SHE NEEDS TO LAY FLAT IN BED WITH NO MORE THEN A 20 DEGREE HOB ELEVATION. EXTERNAL JARQUIN IN PLACE. CPAP AT NIGHT. PT WILL EITHER GO TO REHAB OR HOME WITH HOME HEALTH. IV IS PATENT WITH NO REDNESS OR EDEMA, SALINE LOCKED. PT IS STRUGGLING TO HAVE A BM AND IS REQUESTING A LAXATIVE. PT NOW HAS PO PAIN MEDICATION AND HAS STATED THAT SHE IS DOING MUCH BETTER HAVING A BRACE ON. FAMILY HAS BEEN UPDATED. CALL LIGHT IN REACH. FALL PROTOCOL IN PLACE. WILL CONTINUE TO MONITOR.
[2019-07-19 17:39] VITALS: BP 126/64
[2019-07-19 20:15] VITALS: BP 140/62
--- NOTE | 2019-07-20 00:54 | NUR ---
ASSUMED PT CARE AT 1900. PT C/O PAIN 08/18 TONIGHT. PAIN MEDICATION GIVEN WITH LITTLE RELIEF. UP TO TOILET WITH ASSISTANCE AND WALKER. BM TONIGHT. C/O BACK BRACE BEING OUT OF PLACE. READJUSTED MULTIPLE TIMES UNTIL PT FINALLY GOT COMFORTABLE. CURRENTLY RESTING IN BED WITH CPAP ON.
[2019-07-20 04:20] VITALS: BP 121/47
[2019-07-20 08:28] VITALS: BP 114/63
--- NOTE | 2019-07-20 10:44 | NUR ---
on-going assessment: CM RECEIVED A CALL FROM PHYSICAL THERAPY STATING PT DID VERY WELL TODAY AND HE IS NOW RECOMMENDING HOME WITH HH. CM SPOKE WITH PT WHO STATES SHE DOES NOT HAVE A PREFERENCE OF HH COMPANY. CM FAXED REFERRAL TO [facility] AND WAITING ON A CALL BACK. CM ALSO LEFT FOR HER DAUGHTER DEBORAH. PATIENTS HAS A NIECE WHO IS FLYING INTO TOWN TODAY AND WILL BE ABLE TO STAY WITH HER AT DISCHARGE.
[2019-07-20 11:06] VITALS: BP 114/63
[2019-07-20 11:07] VITALS: BP 114/63
[2019-07-20 11:11] VITALS: BP 114/63
[2019-07-20 11:36] VITALS: BP 114/63
--- NOTE | 2019-07-20 11:49 | NUR ---
PT CARE ASSUMED AT 0700. A&0x4. PT UP IN THE RECLINER WITH BACKBRACE ON. EXTERNAL JARQUIN IN PLACE. CPAP OVER NIGHT. BM TODAY. PT WILL DISCHARGE HOME WITH HOMEHEALTH TODAY. DISCHARGE INSTRUCTIONS GIVEN AND PT UNDERSTANDS. UP WITH WALKER. IV PATENT WITH NO REDNESS OR EDEMA. IV REMOVED. FALL PROTOCOL IN PLACE.
--- NOTE | 2019-07-20 14:36 | NUR ---
FAXED DC ORDERS/SUMMARY TO [facility] HH SPOKE WITH MERI THEY RECEIVED ORDERS AND WILL NOTIFY PT TIME OF VISITS ALSO NEEDED TO KNOW PCP NOTIFIED MERI THAT IT IS DR. LIA KAN [phone].
== END 2019-07-20 12:26 | disposition home health service (06) | DRG 552 ==
LOC: ER 02:34 → 4S 05:39 → EROBS 05:39 → 4S 06:04
PROVIDERS: Emergency Medicine; ADMIT Surgery; ATTEND Surgery
PROC: 5A09357 Assistance with Respiratory Ventilation, Less than 24 Consecutive Hours, Continuous Positive Airway Pressure (ICD-10-PCS; principal; 2019-07-17)
PROC: 5A09357 Assistance with Respiratory Ventilation, Less than 24 Consecutive Hours, Continuous Positive Airway Pressure (ICD-10-PCS; 2019-07-18)
DX: S22.089A Unspecified fracture of T11-T12 vertebra, initial encounter for closed fracture (principal); I48.91 Unspecified atrial fibrillation; G62.9 Polyneuropathy, unspecified; M47.815 Spondylosis without myelopathy or radiculopathy, thoracolumbar region; M48.061 Spinal stenosis, lumbar region without neurogenic claudication; G47.33 Obstructive sleep apnea (adult) (pediatric); K59.00 Constipation, unspecified; E03.9 Hypothyroidism, unspecified; Z79.899 Other long term (current) drug therapy; Z79.01 Long term (current) use of anticoagulants; Z90.49 Acquired absence of other specified parts of digestive tract; Z95.0 Presence of cardiac pacemaker; Z88.2 Allergy status to sulfonamides; W18.39XA Other fall on same level, initial encounter; Y93.89 Activity, other specified; Y92.098 Other place in other non-institutional residence as the place of occurrence of the external cause; Y99.8 Other external cause status
CPT/HCPCS: 10195

== ENCOUNTER → 2019-08-04 | Outpatient (CLI) | payer OTHER, BC ==
[~2019-08-04] MED LIST changes: +LEVO-T25 MCG PO
== END ==
LOC: RAD 13:43
PROVIDERS: ATTEND Neurological Surgery
DX: S22.080A Wedge compression fracture of T11-T12 vertebra, initial encounter for closed fracture (principal); S32.029A Unspecified fracture of second lumbar vertebra, initial encounter for closed fracture; X58.XXXA Exposure to other specified factors, initial encounter; Y93.89 Activity, other specified; Y92.89 Other specified places as the place of occurrence of the external cause; Y99.8 Other external cause status

== ENCOUNTER → 2019-08-09 | Outpatient (CLI) | payer OTHER, BC | LOC: SJCVC 11:43 | PROVIDERS: ATTEND Internal Medicine Cardiovascular Disease | DX: R94.31 Abnormal electrocardiogram [ECG] [EKG] (principal); I65.9 Occlusion and stenosis of unspecified precerebral artery; I48.21 Permanent atrial fibrillation; Z95.0 Presence of cardiac pacemaker ==

== ENCOUNTER → 2019-08-10 | Outpatient (CLI) | payer OTHER, BC | LOC: SJCVCIMAG 13:20 | PROVIDERS: ATTEND Internal Medicine Cardiovascular Disease | DX: M79.604 Pain in right leg (principal); M79.605 Pain in left leg; R22.43 Localized swelling, mass and lump, lower limb, bilateral ==

== ENCOUNTER → 2019-10-13 | Outpatient (CLI) | payer OTHER, BC | LOC: BC 09:03 | PROVIDERS: ATTEND Family Medicine | DX: Z12.31 Encounter for screening mammogram for malignant neoplasm of breast (principal) ==

== ENCOUNTER → 2019-12-21 | Outpatient (CLI) | payer OTHER, BC ==
[~2019-12-21] VITALS: Ht 167.6 cm; Wt 104.3 kg
[~2019-12-21] MED LIST changes: +FOLIXAPURE5000 UNIT PO; +HYDROCHLOROTHIA25 M2 PO; +PSEUDOEPHEDRINE30 MG PO; +TYLENOL EXTRA500 MG PO; +VITAMIN B-121000 MC2 SUBLING; +VYZULTA5 ML OPHTHALMIC
--- NOTE | ~2019-12-21 | HPC ---
[facility] [place] [address] PAIN MANAGEMENT CONSULTATION Name: JUSTICE WANG Room #: REG [facility].#: [id number] Admission: 12/21/19 Attend Phys: Payam Lamas DO Discharge: Date of : 32 Report #: [id number] THIS REPORT FOR: cc: Ninfa Morales MD,Payam Martinez MD, DO ~ CC: Payam Morales DATE OF SERVICE: 12/21/2019 REFERRING PHYSICIAN: Heron Allen MD CHIEF COMPLAINT: Low back pain. HISTORY OF PRESENT ILLNESS: As you know, the patient is an 89-year-old female with longstanding history of low back pain, who was treated with epidural injections in 2017 successfully undergoing 2 injections with resolution of symptoms. The patient states she was doing very well until 07/2019 when she sustained a fall, leading to compression fracture at T12 and L2. The patient was seen and evaluated in the hospital, advised of treatment options and chose to undergo TLSO bracing. The patient states she wore the brace no greater than 3 weeks as it was "irritating." She continues to experience axial back pain that has progressed. She has been referred to our clinic to discuss treatment options for axial back symptoms. She states that the symptoms she is experiencing began directly after a fall and has worsened. The fall was sustained 07/14/2019. The patient was referred to our clinic to discuss interventional treatments. The patient reports today pain is constant and steady. She describes the pain as aching and sharp. She places her daily pain score 9/10, daily average at 9/10, worst pain has been is 10/10. The patient states that pain is exacerbated with doing any activities, improves with pain medications. She has been referred to our clinic to discuss interventional treatment options. PAST MEDICAL HISTORY: 1. Vertebral compression fracture of the lumbar spine. 2. Hypertension. 3. Thyroid disease. PAST SURGICAL HISTORY: 1. Cholecystectomy. 2. Sinus surgery. SOCIAL HISTORY: The patient denies tobacco, alcohol, IV or illicit drug use. 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 She is not working, not receiving workmen's compensation nor is trying to obtain disability benefits. She is unaccompanied at today's visit. REVIEW OF SYSTEMS: Positive for weight gain, decrease in appetite, frequent headaches, wearing corrective eyewear, hearing loss with tinnitus, heart trouble, shortness of breath, obstructive sleep apnea requiring CPAP, changes in bowel movements, constipation, frequent urination, nocturia, incontinence and dribbling to urine, rashes and itching, skin color changes, hair and nail changes, bleeding and bruising tendencies, low back pain. All other review of systems negative per 12-point review of systems other than those listed in history of present illness. Pain impact score 26/70, moderate interference of daily activities secondary to pain. ALLERGIES: No reported drug allergies. CURRENT MEDICATIONS: Acetaminophen 500 mg t.i.d., cyanocobalamin 1000 mcg per day, vitamin D3 one tab per day, pseudoephedrine 30 mg p.r.n., hydrochlorothiazide 25 mg per day, Vyzulta one drop each eye per day. IMAGING: CT of the thoracic spine obtained 07/17/2019 shows acute transverse horizontally oriented fracture involving the mid anterior aspect, the superior plate of T12. Chronic appearing L2 compression fracture. Multilevel thoracic lumbar spondylosis with multiple central canal stenosis, L1 through L4, L5. PQRS: The patient has known arthritic changes of the lumbar spine, bilateral hips and knees. No rheumatoid arthritis. She is placing pain score at 9/10. She is a fall risk, has had a fall in last 3 months, but does not utilize any type of ambulatory device despite recommendations to do so. She is on blood thinners in the form of Xarelto. She is treated for hypertension. She is not on chronic opioids, has a low opiate addiction potential. Pain impact 26/70, moderate interference of daily activities secondary to pain. PHYSICAL EXAMINATION: VITAL SIGNS: Blood pressure 113/56, pulse 62, respiratory rate 20 and unlabored. The patient is 100% on room air. Height 5 feet 6 inches tall, weight 230 pounds, BMI calculated 37.1. GENERAL: Well-developed, well-nourished, well-hydrated exogenously obese 89-year-old female appearing stated age, pain is rated today 9/10. HEENT: Normocephalic, atraumatic. Pupils equal, round and reactive. NEUROLOGIC: Speech fluent. The patient deemed a good historian. LUNGS: Clear. No wheeze, rhonchi, and no rales. CARDIOVASCULAR: Regular. No appreciable gallop, no rub. ABDOMEN: Soft, obese, normoactive bowel sounds. [address] [address] PAIN MANAGEMENT CONSULTATION Name: JUSTICE WANG Room #: REG ANIKA Hoskins#: [id number] Admission: 12/21/19 Attend Phys: Payam Lamas DO Discharge: Date of : 32 Report #: [id number] EXTREMITIES: Show no clubbing, no cyanosis, and no appreciable edema. MUSCULOSKELETAL: Lower extremity strength appears symmetrical, but deconditioning noted bilaterally. Seated straight leg raising negative. Supine straight leg raising negative. Marisabel's test is negative. Modified Gaenslen's positive for axial low back pain. Ankle clonus negative. Babinski is negative. Palpatory tenderness is noted over the paraspinal musculature of lower lumbar spine. No spinous process tenderness. The patient's gait appears normal for her. She does show slight loss of lordotic curvature in stance. ASSESSMENT: 1. Symptomatic lumbar radiculopathy. 2. Spinal stenosis of the lumbar spine. 3. Lumbosacral spondylosis with radiculopathy. 4. Lumbar degeneration. 5. History of vertebral compression fractures with suboptimal therapeutic treatment. 6. Chronic intractable pain. PLAN: 1. The patient has been referred to our service by her primary care physician for evaluation and treatment for chronic axial back pain. The patient has had a fall in 07/2019, leading to compression fracture of T12 and a chronic compression fracture of L2. The patient opted not to undergo vertebral augmentation of the T12 while in the hospital and chose to utilize the TLSO bracing system, which was recommended to be worn for 8 weeks. The patient states she did not make it as long as even 3 weeks before she discarded the device. There has been no new imaging since that time. The patient is noted to have done very well with the epidural injections in the past to address lumbar radiculopathy secondary to central canal stenosis. It would be difficult to rule out any vertebral compression fracture or exacerbation of her known compression fractures without further imaging and we would recommend this before moving forward with interventional treatments. We did discuss today the interventional treatments we would recommend and the following was discussed with the patient. We discussed physical therapy, stretching exercise, core strengthening and a concerted effort at weight loss to address axial back pain issues. We discussed suggestions in medication management to include neuropathic pain medications and the possibility of a low dose opioid as the patient cannot take nonsteroidal anti-inflammatories in conjunction with Xarelto therapy. The suggestions would be provided to the PCP. We discussed lumbar epidural injection under fluoroscopic guidance for which the patient was referred to our clinic. We also discussed surgical options with the patient, though at this point, I would not recommend surgical options given her age and underlying comorbidities, prior to trying more conservative treatment. The patient is agreeable. After reviewing the risks and benefits of all proposed treatment options, [place] [address] PAIN MANAGEMENT CONSULTATION Name: JUSTICE WANG [id number] Admission: 12/21/19 Attend Phys: Payam Lamas DO Discharge: Date of : 32 Report #: [id number] forward with an epidural injection under fluoroscopic guidance. 2. The patient will undergo x-ray imaging of the lumbar spine. I wish to further evaluate the lumbar region before considering undergoing an epidural injection. I am concerned about the T12 fracture and the subtherapeutic treatment of her compression with the TLSO bracing system. She was not in the brace long enough to provide stabilization of the fracture or long enough for healing. There is a possibility this may have worsened. I also wish to determine whether or not a spontaneous compression fracture has occurred in the area as literature would indicate that spontaneous fractures could occur easily within 6 weeks of the fracture. The fact the patient had a chronic L2 compression fracture that was not related to injury would indicate a spontaneous compression fracture. This in conjunction with a compression fracture from a known injury, places her at 12-fold increase of spontaneous fracture occurring above or below and this needs to be further evaluated. She will be sent for x-ray imaging today to determine if there is any concerning canal impingement by posterior logan of any new fractures. 3. The Patient will need to gain clearance to come off her Xarelto for 3 days prior to an epidural injection. This is based on GUS guidelines. She will have to be off the medication for 3 days to undergo the procedure. We recommend she contact the prescribing physician, gain clearance to come off the medication. If she can gain clearance, we will have the patient return to undergo the epidural injection requested. 4. No medication changes made at today's visit except for the request to come off the Xarelto. She will continue all current medication therapies at present. If she is able to gain the authorization to come off the Xarelto, she will stop that 3 days before our appointment next Thursday. 5. We wish to thank the referring physician for the opportunity to see this patient in consultation and discuss treatment options for axial back pain secondary to spinal stenosis. Again, we wish to thank you for the opportunity to see this patient in consultation. By: [id number] Payam Lamas DO /alison
[2019-12-21 13:14] VITALS: BP 113/56
--- NOTE | 2019-12-21 13:27 | NUR ---
Pain Clinic Assessment: 1. History of Osteoarthritis: SPINE History of Rheumatoid Arthritis: DENIES 2. Height: 5 ft. 6 in. 167.6 cm. Weight: 230.0 lb. oz. 104.328 kg. Patient's BMI: 37.1 3. Vital Signs: BP: 113/56 Pulse: 62 Resp: 20 Temp: 02 Sat: 100 ECG Mon: 4. Pain Intensity: 9 5. Fall Risk: Dizziness: N Needs help standing or walking: Y Fallen in the last 3 months: Y Fall risk comments: 6. Patient on Blood Thinner: XARELTO 7. History of Hypertension: Y 8. Opioid Therapy greater than 6 weeks: N Opiate Contract Signed: 9. Risk Assessment Tool Provided: 10. Functional Assessment Tool: 11. Recreational Drug Use: Never Drug Type: Tobacco Use: Never Smoker Tobacco Type: Amount or Packs/day: How Many Years: Alcohol Use: No Frequency: Quant:
== END ==
LOC: PAIN 06:53
PROVIDERS: ATTEND Anesthesiology Pain Medicine
DX: S32.008D Other fracture of unspecified lumbar vertebra, subsequent encounter for fracture with routine healing (principal); M47.27 Other spondylosis with radiculopathy, lumbosacral region; M48.07 Spinal stenosis, lumbosacral region; G89.4 Chronic pain syndrome; I10 Essential (primary) hypertension; Z90.49 Acquired absence of other specified parts of digestive tract; Z79.899 Other long term (current) drug therapy; X58.XXXD Exposure to other specified factors, subsequent encounter

== ENCOUNTER → 2019-12-27 | Outpatient (CLI) | payer OTHER, BC ==
[~2019-12-27] VITALS: Ht 167.6 cm; Wt 107.3 kg
[2019-12-27 12:53] VITALS: BP 133/66
--- NOTE | 2019-12-27 13:00 | NUR ---
Pain Clinic Assessment: 1. History of Osteoarthritis: SPINE POSSIBLE LEFT SHOULDER History of Rheumatoid Arthritis: DENIES 2. Height: 5 ft. 6 in. 167.6 cm. Weight: 236.6 lb. oz. 107.321 kg. Patient's BMI: 38.2 3. Vital Signs: BP: 133/66 Pulse: 80 Resp: 18 Temp: 02 Sat: 99 ECG Mon: 4. Pain Intensity: 8-9 5. Fall Risk: Dizziness: N Needs help standing or walking: N Fallen in the last 3 months: N Fall risk comments: 6. Patient on Blood Thinner: XARELTO 7. History of Hypertension: Y 8. Opioid Therapy greater than 6 weeks: N Opiate Contract Signed: 9. Risk Assessment Tool Provided: 0-LOW RISK 10. Functional Assessment Tool: 11. Recreational Drug Use: Never Drug Type: Tobacco Use: Never Smoker Tobacco Type: Amount or Packs/day: How Many Years: Alcohol Use: No Frequency: Quant:
--- NOTE | 2019-12-28 12:43 | HPC ---
[facility] [place] [address] PAIN MANAGEMENT CONSULTATION Name: JUSTICE WANG Room #: REG [facility]..#: [id number] Admission: 12/27/19 Attend Phys: Payam Lamas DO Discharge: Date of : 32 Report #: [id number] THIS REPORT FOR: cc: Ninfa Morales MD,Payam Martinez MD, DO ~ DATE OF SERVICE: 12/27/2019 REFERRING PHYSICIAN: Miguel Gayle MD CHIEF COMPLAINT: Low back pain. HISTORY OF PRESENT ILLNESS: As you know, the patient is an 89-year-old female with longstanding history of low back pain treated with epidural injections in 2017 successfully, undergoing 2 injections with resolution of symptoms. She was seen in consultation per the request of the referring physician on 12/21/2019 to be evaluated for possible epidural injection. At that time, the patient showed compression fractures that were chronic, but given her risk of fracture of 12-fold increase due to 2 spontaneous compression fractures. We felt it was necessary to have the patient undergo x-ray imaging to confirm that no new fractures had occurred. The patient was complaining of pain in a different area and in a different intensity. I am pleased to indicate that there is no new compression fractures, though it does show multilevel spondylosis that has increased since our previous evaluation. She is now off her anticoagulant in preparation for a lumbar epidural injection. ALLERGIES: No reported drug allergies. CURRENT MEDICATIONS: Acetaminophen, cyanocobalamin, vitamin D3, pseudoephedrine, hydrochlorothiazide, Vyzulta. SOCIAL HISTORY: The patient denies tobacco, alcohol, IV or illicit drug use. She is retired, retired years ago, unaccompanied today. IMAGING: No new imaging available. PQRS: The patient has known arthritic changes of the lumbar spine, bilateral hips and knees. No rheumatoid arthritis. The patient is placing pain today at 8-9/10, not a fall risk, has not had a fall in last 3 months. She is on Xarelto, but discontinued the medication in preparation for today's injection. She is treated for hypertension. She is not on chronic opioids, has a low opiate addiction potential. Pain impact , moderate interference of daily activities secondary to pain. PHYSICAL EXAMINATION: [facility] [address] [place] [address] PAIN MANAGEMENT CONSULTATION Name: JUSTICE WANG Room #: REG [facility].#: [id number] Admission: 12/27/19 Attend Phys: Payam Lamas DO Discharge: Date of : 32 Report #: [id number] VITAL SIGNS: Blood pressure 133/66, pulse 80, respiratory rate 18 and unlabored. The patient is 99% on room air. Height 5 feet 6 inches tall, weight 236.6 pounds, BMI calculated 38.2. GENERAL: Well-developed, well-nourished, well-hydrated exogenously obese 89-year-old female appearing stated age, pain is rated 8-9/10. HEENT: Normocephalic, atraumatic. Pupils equal, round and reactive. EXTREMITIES: Show no clubbing, no cyanosis. No appreciable edema. MUSCULOSKELETAL: Seated straight leg raising is negative. Supine straight leg raising is negative. Marisabel's test is negative. Modified Gaenslen's positive for axial low back pain. ASSESSMENT: 1. Symptomatic lumbar radiculopathy. 2. Spinal stenosis of lumbar spine, progressively worsening. 3. Lumbosacral spondylosis with radiculopathy. 4. Lumbar degeneration. 5. History of compression fractures with suboptimal therapeutic treatment. 6. Chronic intractable pain. PLAN: 1. The patient returns today in followup visit where we have reviewed x-ray imaging from her previous evaluation. I am pleased to advise the patient there were no new compression fractures. It does appear that she has had progression of her osteoarthritic changes and disk desiccation, but no new fractures. 2. The patient has been established today's appointment to undergo a lumbar epidural injection under fluoroscopic guidance. She has been off her Xarelto the recommended amount of time for the patient to undergo this procedure. She has been advised risks and benefits. These risks include but are not necessarily limited to bleeding, bruising, infection, worsening pain, no relief of pain, also risk of temporary or permanent muscle weakness, temporary or permanent nerve damage, possible paralysis and . The patient states understood and wished to proceed. 3. No medication changes made at today's visit. The patient will restart her Xarelto today and continue the medication as directed. 4. We will see the patient back in followup visit on an as needed basis for possible next in the series of lumbar epidural injections. PROCEDURE NOTE DESCRIPTION OF PROCEDURE: L5-S1 intralaminar epidural steroid injection under fluoroscopic guidance. This is the first procedure of the second series that the patient is undergoing. After obtaining written consent, the patient was taken back to the fluoroscopy [address] [address] PAIN MANAGEMENT CONSULTATION Name: JUSTICE WANG [id number] Admission: 12/27/19 Attend Phys: Payam Lamas DO Discharge: Date of : 32 Report #: [id number] suite, placed in a prone position with pillow under the abdomen to decrease lumbar lordosis. The skin overlying the lumbosacral area was then prepped and draped in aseptic fashion. The L5-S1 vertebral interspace was then identified by AP fluoroscopy. The skin and subcutaneous tissue overlying the target site of injection was anesthetized with 3 mL 1% lidocaine. A 20-gauge, 4-1/2 inch Tuohy needle was then advanced under fluoroscopic guidance towards the epidural space using a right parasagittal approach. The epidural space was identified using loss of resistance to air technique. After negative aspiration for heme or cerebrospinal fluid, a total of 1 mL of Omnipaque was injected. A lumbar epidurogram was confirmed using both AP and lateral fluoroscopy. After negative aspiration for heme or cerebrospinal fluid, 5 mL of a solution containing 2 mL of 40 mg per mL, 80 mg total triamcinolone along with 3 mL of lidocaine 1% was injected in increments. Contrast spread was noted from posterior epidural space. The needle was then retracted approximately half way and needle tract flushed with 1 mL of 1% lidocaine. Needle was then removed. There were no apparent sensory or motor deficits in the lower extremity following the procedure. A sterile bandage was placed over the injection site. The heart rate, pulse, oximetry and blood pressure were continuously monitored after the procedure. There were no apparent complications. The patient tolerated the procedure well and was carefully escorted to the recovery room in stable condition. There were no apparent complications. After meeting discharge criteria, the patient was then discharged home. <ELECTRONICALLY SIGNED> By: Payam Lamas DO 12/28/19 [id number] Payam Lamas DO /nt
== END | disposition home or self-care (01) ==
LOC: PAIN 06:55
PROVIDERS: ATTEND Anesthesiology Pain Medicine
DX: M51.16 Intervertebral disc disorders with radiculopathy, lumbar region (principal); M47.27 Other spondylosis with radiculopathy, lumbosacral region; M48.061 Spinal stenosis, lumbar region without neurogenic claudication; G89.29 Other chronic pain; I10 Essential (primary) hypertension; M19.90 Unspecified osteoarthritis, unspecified site; Z98.890 Other specified postprocedural states; Z79.899 Other long term (current) drug therapy

== ENCOUNTER → 2020-08-08 | Outpatient (CLI) | payer OTHER, BC | LOC: SJCVCIMAG 07:37 | PROVIDERS: ATTEND Internal Medicine Cardiovascular Disease | DX: I07.1 Rheumatic tricuspid insufficiency (principal); M79.669 Pain in unspecified lower leg; M79.89 Other specified soft tissue disorders; I45.9 Conduction disorder, unspecified; I48.21 Permanent atrial fibrillation; G47.33 Obstructive sleep apnea (adult) (pediatric); Z95.0 Presence of cardiac pacemaker; Z98.890 Other specified postprocedural states; Z79.01 Long term (current) use of anticoagulants; Z79.899 Other long term (current) drug therapy; Z82.49 Family history of ischemic heart disease and other diseases of the circulatory system ==

== ENCOUNTER → 2020-08-15 | Outpatient (CLI) | payer OTHER, BC | LOC: SJCVC 13:20 | PROVIDERS: ATTEND Internal Medicine Cardiovascular Disease | DX: M79.669 Pain in unspecified lower leg (principal); M79.89 Other specified soft tissue disorders; I48.21 Permanent atrial fibrillation; G47.33 Obstructive sleep apnea (adult) (pediatric); Z95.0 Presence of cardiac pacemaker; Z79.899 Other long term (current) drug therapy ==

== ENCOUNTER → 2020-10-17 | Outpatient (CLI) | payer OTHER, BC | LOC: BC 12:52 | PROVIDERS: ATTEND Family Medicine | DX: Z12.31 Encounter for screening mammogram for malignant neoplasm of breast (principal) ==

== ENCOUNTER → 2020-11-07 | Outpatient (CLI) | payer OTHER, BC | LOC: SJCVC 13:07 | PROVIDERS: ATTEND Internal Medicine Cardiovascular Disease | DX: I48.21 Permanent atrial fibrillation (principal); G47.33 Obstructive sleep apnea (adult) (pediatric); M79.89 Other specified soft tissue disorders; M79.662 Pain in left lower leg; Z95.0 Presence of cardiac pacemaker; Z79.899 Other long term (current) drug therapy ==

== ENCOUNTER 2020-12-04 00:25 | Emergency (ER) | payer OTHER, BC ==
[~2020-12-04] VITALS: Ht 167.6 cm; Wt 104.3 kg
--- NOTE | ~2020-12-04 | EMS ---
[address] [address] EMS Patient Care Report Name: JUSTICE WANG Room #: PRE M.R.#: [id number] Admission: Attend Phys: Discharge: Date of : 34 Report #: [id number] THIS REPORT FOR: //name// Report Transmitted: 12/04/2020 00:27 EMS Care Summary [place], [place]/[facility] Incident [id number] @ 12/03/2020 23:51 Incident Location [address] [place] [address] Patient JUSTICE WANG Female, 89 Years 1930 Patient Address Patient History Cardiac Arrythmia, Patient Allergies No known allergies, Chief Complaint multiple areas of pain/fall Disposition Transported No Lights/[place] Reason Falls Transported To [facility] Narrative pt was getting out of her chair to go to bed, stumbled and fell. she hit her head on the wall when she fell. Life Alert button summoned her neighbor to check on her. we arrive to find pt supine on floor, a&o. she denies LOC. she c/o "hurting everywhere". she later narrows her pain to back, head, L arm and knee. pt stood upright and helped to cot w/ assist. she req eval at [facility]. transport w/o change. Initial Vitals [address] [address] EMS Patient Care Report Name: JUSTICE WANG Room #: PRE M.R.#: [id number] Admission: Attend Phys: Discharge: Date of : 32 Report #: [id number] @00:11P: 112,R: 18,BP: 147/69,Pain: 6/10,GCS: 15,SpO2: 97,Revised Trauma: 12, Assessments @00:01MENTAL:No Abnormalities,SKIN:No Abnormalities,HEENT:Head/Face: Other,LUNG SOUNDS:ABDOMEN:PELVIS//GI:EXTREMITIES:Left Arm: Other,Left Leg: Other,PULSE:NEURO:Other, Impression Extremity Pain Procedures @00:01 ALS Assessment Response: Unchanged @00:06 Stretcher Response: Unchanged Timeline 23:50,Dispatch Notified 23:51,Dispatched 23:53,En Route 23:59,On Scene 00:01,At Patient 00:01,ALS Assessment,Response: Unchanged 00:06,Stretcher,Response: Unchanged 00:11,BP: 147/69 M,PULSE: 112,RR: 18 R,SPO2: 97 Ox,ETCO2: ,BG: ,PAIN: 6,GCS: 15, 00:12,Depart Scene 00:22,At Destination 00:36,Call Closed 23:50,Call Received Disclaimer v1.1 Copyright 2020 [employer] This EMS Care Summary contains data elements from the applicable legal record (which may be displayed differently). It is designed to provide pertinent information for the following purposes: continuity of care, clinical quality, and state data reporting. The complete legal record is available to ED staff and administrators of the receiving hospital in [facility]'s Patient Tracker. All data is provided "as is."
[2020-12-04] MEDS ORDERED: NEURONTIN 300M300 M2 PO (00:37)
[2020-12-04] MEDS ORDERED: MACROBID 100 M100 M1 PO (00:37)
[2020-12-04] MEDS ORDERED: KLOR-CON M1010 MEQ PO (00:38)
[2020-12-04] MEDS ORDERED: NYSTATIN15 G3 TOP (00:38)
[2020-12-04] MEDS ORDERED: FUROSEMIDE 20 M20 M1 PO (00:38)
[2020-12-04 01:23] LABS: ABSOLUTE NEUTROPHILS 4.2 thou/uL (1.4-8.2); EOSINOPHILS 2.7 % (0.0-3.0); HEMATOCRIT 42.1 % (37.0-47.0); HEMOGLOBIN 14.6 gm/dL (12.0-15.0); LYMPHOCYTES 32.5 % (24.0-44.0); MCH 32.4 pg (26.0-34.0); MCHC 34.6 g/dL (28.0-37.0); MCV 93.7 fL (80.0-100.0); MONOCYTES 7.6 % (1.0-8.0); PLATELET COUNT 209 thou/uL (150-400); POLYS 56.2 % (36.0-66.0); RBC 4.49 mil/uL (4.20-5.00); RDW 13.7 % (10.5-14.5); WBC 7.4 thou/uL (4.0-11.0)
[2020-12-04 01:28] LABS: CALCIUM 9.8 mg/dL (8.5-10.1); CREATININE 0.9 mg/dL (0.6-1.0)
[2020-12-04 01:37] LABS: ALBUMIN 3.2 g/dL (3.4-5.0); TOTAL BILIRUBIN 0.5 mg/dL (0.2-1.0); TOTAL PROTEIN 6.9 g/dL (6.4-8.2)
[2020-12-04 06:54] VITALS: BP 147/85
--- NOTE | 2020-12-04 07:16 | EKG ---
[place] [address] [address] [employer] [facility] [address] ELECTROCARDIOGRAM REPORT Name: JUSTICE WANG Room #: DEP [facility]#: [id number] Admission: 12/04/20 Attend Phys: Discharge: 12/04/20 Date of : 32 Report #: [id number] [facility] ED Test Date: 2020-12-04 Test Time: 00:39:14 Pat Name: JUSTICE WANG Department: Room: Gender: F Assistant Health Educator: aung : 1930 Requested By: Jhon Phillips Order Number: [id number] MD: Gabriel Yepez Measurements Intervals Dawson Rate: 60 P: 0 MT: 166 QRS: -88 QRSD: 145 T: 88 QT: 460 QTc: 460 Interpretive Statements Ventricular-paced rhythm No further analysis attempted due to paced rhythm Compared to ECG 01/17/2017 12:50:24 Atrial fibrillation no longer present Electronically Signed On 12-04-2020 7:16:32 CDT by Gabriel Yepez [email or web address] <ELECTRONICALLY SIGNED> By: Gabriel Yepez MD, [facility] 12/04/20 0716 0039 0039 Gabriel Yepez MD, FACC /EPI
--- NOTE | 2020-12-04 11:51 | EKG ---
[address] [place] [address] ELECTROCARDIOGRAM REPORT Name: JUSTICE WANG [id number] Admission: 12/04/20 Attend Phys: Discharge: 12/04/20 Date of : 34 Report #: [id number] [facility] ED Test Date: 2020-12-04 Test Time: 02:42:50 Pat Name: JUSTICE WANG Department: Room: Gender: F Designer Architect: harjinder : 1930 Requested By: Jhon Phillips Order Number: [id number] MD: Gabriel Yepez Measurements Intervals [place] Rate: 60 P: 0 MI: 320 QRS: -86 QRSD: 138 T: 84 QT: 461 QTc: 461 Interpretive Statements Ventricular-paced rhythm No further analysis attempted due to paced rhythm Compared to ECG 12/04/2020 00:39:14 No significant changes Electronically Signed On 12-04-2020 11:51:48 CDT by Gabriel Yepez [email or web address] <ELECTRONICALLY SIGNED> By: Gabriel Yepez MD, [facility] 12/04/20 1151 [id number] Gabriel Yepez MD, FACC /EPI
== END 2020-12-04 06:28 | disposition home or self-care (01) ==
LOC: ER 00:25
PROVIDERS: Emergency Medicine
DX: M25.562 Pain in left knee (principal); M25.512 Pain in left shoulder; M54.50 Low back pain, unspecified; M54.2 Cervicalgia; Z90.49 Acquired absence of other specified parts of digestive tract; Z98.890 Other specified postprocedural states; Z79.891 Long term (current) use of opiate analgesic; Z79.899 Other long term (current) drug therapy; Z79.1 Long term (current) use of non-steroidal anti-inflammatories (NSAID); W18.30XA Fall on same level, unspecified, initial encounter; Y93.89 Activity, other specified; Y92.89 Other specified places as the place of occurrence of the external cause; Y99.8 Other external cause status

== ENCOUNTER → 2021-02-12 | Outpatient (CLI) | payer OTHER, BC ==
[~2021-02-12] VITALS: Ht 167.6 cm; Wt 109.7 kg
[~2021-02-12] MED LIST changes: +FUROSEMIDE 20 M20 M1 PO; +KLOR-CON M1010 MEQ PO; +MACROBID 100 M100 M1 PO; +NEURONTIN 300M300 M2 PO; +NYSTATIN15 G3 TOP
[2021-02-12 11:17] VITALS: BP 114/70
--- NOTE | 2021-02-12 11:36 | NUR ---
Pain Clinic Assessment: 1. History of Osteoarthritis: SPINE POSSIBLE LEFT SHOULDER History of Rheumatoid Arthritis: DENIES 2. Height: 5 ft. 6 in. 167.6 cm. Weight: 241.8 lb. oz. 109.680 kg. Patient's BMI: 39.0 3. Vital Signs: BP: 114/70 Pulse: 62 Resp: 20 Temp: 02 Sat: 99 ECG Mon: 4. Pain Intensity: 6-7 W/ACTIVITY 5. Fall Risk: Dizziness: N Needs help standing or walking: Y Fallen in the last 3 months: Y Fall risk comments: 6. Patient on Blood Thinner: XARELTO 7. History of Hypertension: Y 8. Opioid Therapy greater than 6 weeks: N Opiate Contract Signed: 9. Risk Assessment Tool Provided: 0-LOW RISK 10. Functional Assessment Tool: 11. Recreational Drug Use: Never Drug Type: Tobacco Use: Never Smoker Tobacco Type: Amount or Packs/day: How Many Years: Alcohol Use: No Frequency: Quant:
--- NOTE | 2021-02-13 09:44 | HPC ---
[address] [address] PAIN MANAGEMENT CONSULTATION Name: JUSTICE WANG Room #: REG [facility] M..#: [id number] Admission: 02/12/21 Attend Phys: Payam Lamas DO Discharge: Date of : 32 Report #: [id number] THIS REPORT FOR: cc: Ninfa Morales MD,Payam Martinez MD, DO ~ cc: Ninfa Morales DO DATE OF SERVICE: 02/12/2021 REFERRING PHYSICIAN: Dr. Ninfa Morales. CHIEF COMPLAINT: Low back pain, bilateral lower extremity pain. HISTORY OF PRESENT ILLNESS: As you know, the patient is a very pleasant 89-year-old female with longstanding history of low back pain, treated with epidural injections successfully throughout the years. She was last seen in our clinic on 12/27/2019, undergoing the most recent of the epidural injections. She had been doing very well until just recently. She has had recurrence of symptoms, for which she places pain today at 6-7/10. She returns today requesting to begin the process of undergoing the next in the series of lumbar epidural injections. Unfortunately, the patient continued her Xarelto, which precludes us from being able to provide that injection today. She has received excellent benefit with previous injection up to 90% improvement in overall pain, lasting for almost a year and a half. She returns today in followup visit to discuss the next in the series of lumbar epidural injections. The patient denies injury or trauma that may have led to symptom development. There have been no changes in her medication management that would preclude her from undergoing the epidural injection, assuming she can qualm off the Xarelto in preparation for that procedure. ALLERGIES: No known drug allergies. CURRENT MEDICATIONS: Potassium chloride 10 mEq p.o. daily, acetaminophen 500 mg 3 times a day, Vyzulta 1 drop each eye per day, hydrochlorothiazide 25 mg per day, pseudoephedrine 30 mg p.o. daily, vitamin B complex 1 tab per day, cyanocobalamin 1000 mcg per day, Xarelto 20 mg once a day, levothyroxine 25 mcg per day, multivitamin 1 tab per day, Neurontin 300 mg p.o. at bedtime. SOCIAL HISTORY: The patient denies tobacco, alcohol or IV or illicit drug use. She is retired, retired years ago. She is accompanied by her daughter present in room today. IMAGING: No new imaging available. PQRS: The patient has known arthritic changes of lumbar spine, bilateral shoulders, hips and knees. No rheumatoid arthritis. [place] [address] PAIN MANAGEMENT CONSULTATION Name: JUSTICE WANG Room #: REG Tamiko Hoskins#: [id number] Admission: 02/12/21 Attend Phys: Payam Lamas DO Discharge: Date of : 32 Report #: [id number] pain score at 6-7/10. She is a fall risk and has had falls in the last 3 months. She does not use any type of ambulatory device. We have cautioned her to obtain a device but she has not done so. She is on no opioids, has a low opioid addiction potential. Pain impact is 26-70, [id number] interference of daily activities secondary to pain. PHYSICAL EXAMINATION: VITAL SIGNS: Blood pressure 114/70, pulse 62, respiratory rate 20, unlabored. The patient 99% on room air. Height 5 feet 6 inches tall, weight 241.8 pounds, BMI calculated 39.0. GENERAL: Well-developed, well-nourished, well-hydrated 89-year-old female appearing stated age. Pain rated today 6-7/10. HEENT: Normocephalic, atraumatic. Pupils equal, round. She is wearing a facemask in compliance with COVID-19 regulations and hospital policies. EXTREMITIES: Show no clubbing, no cyanosis and no appreciable edema. MUSCULOSKELETAL: Seated straight leg raising negative. Supine straight leg raising remains negative. PRAKASH test is negative. Modified Gaenslen's positive for axial low back pain. Gait is antalgic, appears that she is favoring the right lower extremity over left based on gait today. Muscle bulk and tone is equal and symmetrical in lower extremities, though there is noted deconditioning. Strength is rated at 5/5. ASSESSMENT: 1. Symptomatic lumbar radiculopathy. 2. Spinal stenosis of the lumbar spine. 3. Lumbosacral spondylosis with radiculopathy. 4. Lumbar degeneration. 5. Chronic intractable pain. PLAN: 1. The patient returns today in followup visit to begin the process of undergoing a lumbar epidural injection. Unfortunately, the patient continued her Xarelto, which will preclude her from undergoing the injection today. We will schedule the patient back in followup visit so that she can come off the Xarelto for the 3 days required for her to undergo a neural axial blockade such as a lumbar epidural injection proposed today. The patient was offered an appointment for this Thursday, which would be the quickest time to be off the Xarelto and undergo the procedure. She chose to make an appointment back with us next Thursday. The patient will discontinue her Xarelto on Thursday in preparation for that injection. 2. No further changes in medication management were made except for the adjustments in the Xarelto to start this Thursday. We will restart the patient's Xarelto, assuming no bleeding issues on Thursday of next week. Otherwise, no other medication changes made today. [facility] [address] [place] [address] PAIN MANAGEMENT CONSULTATION Name: JUSTICE WANG [id number] Admission: 02/12/21 Attend Phys: Payam Lamas DO Discharge: Date of : 32 Report #: [id number] 3. We will see the patient back in followup visit next Thursday for the requested lumbar epidural injection under fluoroscopic guidance. <ELECTRONICALLY SIGNED> By: Payam Lamas DO 02/13/21 0944 1252 25 Payam Lamas DO /nt
== END ==
LOC: PAIN 10:02
PROVIDERS: ATTEND Anesthesiology Pain Medicine
DX: M47.26 Other spondylosis with radiculopathy, lumbar region (principal); M51.16 Intervertebral disc disorders with radiculopathy, lumbar region; M48.061 Spinal stenosis, lumbar region without neurogenic claudication; G89.29 Other chronic pain; M79.661 Pain in right lower leg; M79.662 Pain in left lower leg; Z79.899 Other long term (current) drug therapy

== ENCOUNTER → 2021-02-19 | Outpatient (CLI) | payer OTHER, BC ==
[~2021-02-19] VITALS: Ht 167.6 cm; Wt 107.5 kg
[2021-02-19 11:12] VITALS: BP 146/64
--- NOTE | 2021-02-19 11:14 | NUR ---
Pain Clinic Assessment: 1. History of Osteoarthritis: SPINE POSSIBLE LEFT SHOULDER History of Rheumatoid Arthritis: DENIES 2. Height: 5 ft. 6 in. 167.6 cm. Weight: 237.0 lb. oz. 107.503 kg. Patient's BMI: 38.3 3. Vital Signs: BP: 146/64 Pulse: 79 Resp: 18 Temp: 02 Sat: 98 ECG Mon: 4. Pain Intensity: 8 5. Fall Risk: Dizziness: N Needs help standing or walking: N Fallen in the last 3 months: Y Fall risk comments: 6. Patient on Blood Thinner: XARELTO 7. History of Hypertension: Y 8. Opioid Therapy greater than 6 weeks: N Opiate Contract Signed: 9. Risk Assessment Tool Provided: 0-LOW RISK 10. Functional Assessment Tool: 11. Recreational Drug Use: Never Drug Type: Tobacco Use: Never Smoker Tobacco Type: Amount or Packs/day: How Many Years: Alcohol Use: No Frequency: Quant:
--- NOTE | 2021-02-20 08:06 | HPC ---
[address] [address] PAIN MANAGEMENT CONSULTATION Name: JUSTICE WANG Room #: REG [facility]..#: [id number] Admission: 02/19/21 Attend Phys: Payam Lamas DO Discharge: Date of : 34 Report #: [id number] THIS REPORT FOR: cc: Ninfa Morales MD,Payam Martinez MD, DO ~ cc: Ninfa Morales DO DATE OF SERVICE: 02/19/2021 REFERRING PHYSICIAN: Dr. Ninfa Morales. CHIEF COMPLAINT: Low back pain, bilateral lower extremity pain with paresthesias. HISTORY OF PRESENT ILLNESS: As you know, the patient is a very pleasant 89-year-old female with longstanding history of chronic low back pain, bilateral lower extremity pain with paresthesias due to multifactorial central canal stenosis. She has done well with previous epidural injections, returning today having discontinued her Xarelto in preparation for a lumbar epidural injection. We saw the patient on 02/12/2021 and established today's appointment to undergo the procedure. She had continued her Xarelto, which precluded her from undergoing the injection at that visit. She was made today's appointment to address recurrent lumbar radicular pain for which she was placing pain at that visit 6/10; at today's visit, at 8/10. She is denying injury or trauma that may have led to symptom development. There have been no changes in her medication management other than that discontinuation of Xarelto. ALLERGIES: No known drug allergies. CURRENT MEDICATIONS: See chart. SOCIAL HISTORY: The patient denies tobacco, alcohol or IV or illicit drug use. She is retired, retired years ago, accompanied by her daughter present in room today. IMAGING: No new imaging available. PQRS: The patient has known arthritic changes of lumbar spine, bilateral shoulders, hips and knees. No rheumatoid arthritis. Pain intensity is rated today at 8/10. She is a fall risk, but has not had a fall in the last 3 months. She is on blood thinner in the form of Xarelto, but discontinued the medication 3 days ago in preparation for the procedure today. She is treated for hypertension. She is on no opioids, has a low opioid addiction potential based on assessment tool. Pain impact today is 30/70, moderate interference of daily activities secondary to pain. [address] [address] PAIN MANAGEMENT CONSULTATION Name: JUSTICE WANG Room #: REG ANIKA Aidee#: [id number] Admission: 02/19/21 Attend Phys: Payam Lamas DO Discharge: Date of : 32 Report #: [id number] PHYSICAL EXAMINATION: VITAL SIGNS: Blood pressure 146/64, pulse is 79, respiratory rate 18 and unlabored. The patient is 98% on room air. Height 5 feet 6 inches tall, weight 237 pounds, BMI calculated 38.3. GENERAL: Well-developed, well-nourished, well-hydrated exogenously obese 89-year-old female appearing stated age, pain is rated today 8/10. HEENT: Normocephalic, atraumatic. She is wearing a mask in compliance with COVID-19 regulations and hospital policy. EXTREMITIES: Show no clubbing, no cyanosis. No appreciable edema. MUSCULOSKELETAL: Seated straight leg raising remains negative. Supine straight leg raising negative. Fabere's test is negative. Her gait is antalgic favoring right lower extremity today. Muscle bulk and tone in the lower extremities appear symmetrical. Deep tendon reflexes are 1+/4 at patella and Achilles. ASSESSMENT: 1. Symptomatic lumbar radiculopathy. 2. Spinal stenosis of lumbar spine. 3. Lumbosacral spondylosis with radiculopathy. 4. Lumbar degeneration. 5. Chronic intractable pain. PLAN: 1. The patient returns today in followup visit, requesting a lumbar epidural injection under fluoroscopic guidance. The patient has discontinued her Xarelto in preparation for today's procedure. She has been off the medication for the past 3 days. She has been advised the risks and benefits of a lumbar epidural injection. These risks include but are not necessarily limited to bleeding, bruising, infection, worsening pain, no relief of pain, also risk of temporary or permanent muscle weakness, temporary or permanent nerve damage, possible paralysis, post-dural puncture, headache, and . The patient states understood and wished to proceed. 2. No medication changes made at today's visit. The patient will continue current medical therapy as prior prescribed. 3. The patient will restart her Xarelto at typical dosing. She will continue the medication as directed. 4. We plan to see the patient back in followup visit on an as needed basis. We are hopeful the patient will once again see good and prolonged benefit with the injection provided today. PROCEDURE NOTE. DESCRIPTION OF PROCEDURE: L5-S1 interlaminar epidural steroid injection under fluoroscopic guidance. After obtaining written consent, the patient was taken back to fluoroscopy suite, placed in prone position with pillow under abdomen to decrease lumbar [address] [address] PAIN MANAGEMENT CONSULTATION Name: JUSTICE WANG Room #: REG Tamiko Travis#: [id number] Admission: 02/19/21 Attend Phys: Payam Lamas DO Discharge: Date of : 32 Report #: [id number] lordosis. Skin overlying lumbosacral area then prepped and draped in aseptic fashion. The L5-S1 vertebral interspace identified by AP fluoroscopy. Skin and subcutaneous tissue overlying target site injection anesthetized with 3 mL of 1% lidocaine. A 20 gauge 3-1/2 inch Tuohy needle advanced under fluoroscopic guidance towards the epidural space using a parasagittal approach. Epidural space identified using loss of resistance to air technique. After negative aspiration for heme or cerebrospinal fluid, 1 mL of Omnipaque injected. Lumbar epidurogram was confirmed using both AP and lateral fluoroscopy. After negative aspiration for heme or cerebrospinal fluid, 5 mL solution containing 2 mL 40 mg per mL 80 mg total triamcinolone along with 3 mL of lidocaine 1% injected slowly. Needle retracted penitentiary flushed with 1 mL of 1% lidocaine and removed. Sterile bandage placed over injection site. No new motor deficits present in lower extremity following procedure. The patient tolerated the procedure well, carefully escorted to recovery room in stable condition. No apparent complications. After meeting discharge criteria, the patient discharged home. <ELECTRONICALLY SIGNED> By: Payam Lamas DO 02/20/21805 1154 00 Payam Lamas DO /nt
== END | disposition home or self-care (01) ==
LOC: PAIN 02-18 09:47
PROVIDERS: ATTEND Anesthesiology Pain Medicine
DX: M51.16 Intervertebral disc disorders with radiculopathy, lumbar region (principal); M48.061 Spinal stenosis, lumbar region without neurogenic claudication; M47.27 Other spondylosis with radiculopathy, lumbosacral region; G89.29 Other chronic pain; I10 Essential (primary) hypertension; M19.90 Unspecified osteoarthritis, unspecified site; Z98.890 Other specified postprocedural states; Z79.899 Other long term (current) drug therapy